=== PATIENT | male | born 1970 | race Caucasian/White ===

== ENCOUNTER 2017-12-25 18:04 | Emergency (ER) | payer OTHER ==
[~2017-12-25] VITALS: Ht 180.3 cm; Wt 108.9 kg
[2017-12-25] MEDS ORDERED: CRESTOR20 MG (18:33)
== END 2017-12-25 21:37 | disposition home or self-care (01) ==
LOC: ER 18:04
DX: S00.83XA Contusion of other part of head, initial encounter (principal); S20.212A Contusion of left front wall of thorax, initial encounter; S20.211A Contusion of right front wall of thorax, initial encounter; V19.9XXA Pedal cyclist (driver) (passenger) injured in unspecified traffic accident, initial encounter; Y93.89 Activity, other specified; Y92.89 Other specified places as the place of occurrence of the external cause; Y99.8 Other external cause status